=== PATIENT | female | born 1990 | race Caucasian/White ===

== ENCOUNTER 2018-04-24 16:44 | Emergency (ER) | payer OTHER ==
[~2018-04-24] VITALS: Ht 167.6 cm; Wt 81.6 kg
== END 2018-04-24 17:25 | disposition home or self-care (01) ==
LOC: ED 16:44
DX: F32.9 Major depressive disorder, single episode, unspecified (principal); Z88.6 Allergy status to analgesic agent

== ENCOUNTER 2022-05-15 08:44 | Emergency (ER) | payer OTHER ==
[~2022-05-15 08:44] MED LIST: REGLAN10 M1 PO
[2022-05-15] MEDS ORDERED: GLIPIZIDE10 M1 PO (09:10)
[2022-05-15] MEDS ORDERED: ZIPRASIDONE HCL20 M1 PO (09:10)
[2022-05-15] MEDS ORDERED: ATORVASTATIN CA40 M1 PO (09:10)
[2022-05-15] MEDS ORDERED: RYBELSUS7 MG PO (09:10)
[2022-05-15] MEDS ORDERED: LAMOTRIGINE25 M1 PO (09:11)
[2022-05-15] MEDS ORDERED: PREGABALIN200 MG PO (09:11)
[2022-05-15] MEDS ORDERED: JANUVIA100 MG PO (09:11)
[2022-05-15] MEDS ORDERED: QUETIAPINE FUM300 M1 PO (09:12)
[2022-05-15] MEDS ORDERED: TYLENOL325 M1 PO (09:35)
[2022-05-15] MEDS ORDERED: NAPROXEN250 MG PO (09:35)
== END 2022-05-15 09:46 | disposition home or self-care (01) ==
LOC: ED 08:44
DX: S93.401A Sprain of unspecified ligament of right ankle, initial encounter (principal); Z88.8 Allergy status to other drugs, medicaments and biological substances; Z79.899 Other long term (current) drug therapy; X50.1XXA Overexertion from prolonged static or awkward postures, initial encounter; Y93.89 Activity, other specified; Y92.89 Other specified places as the place of occurrence of the external cause; Y99.8 Other external cause status

== ENCOUNTER → 2023-11-23 | Outpatient (CLI) | payer BC ==
[~2023-11-23] MED LIST changes: +ATORVASTATIN CA40 M1 PO; +Carafate1 GM PO; +GLIPIZIDE10 M1 PO; +HUMALOG100 UNIT/1 SC; +JANUVIA100 MG PO; +LAMICTAL25 MG PO; +LAMOTRIGINE25 M1 PO; +LANTUS SOL100 UNIT/1 SC; +LYRICA200 M1 PO; +MOTRIN IB200 M1 PO; +NAPROXEN250 MG PO; +PREGABALIN200 MG PO; +PROTONIX40 MG PO; +QUETIAPINE FUM300 M1 PO; +RYBELSUS7 MG PO; +SEROQUEL200 MG PO; +TYLENOL325 M1 PO; +VITAMIN D350 MCG PO; +ZESTRIL10 MG PO; +ZIPRASIDONE HCL20 M1 PO
== END | disposition home or self-care (01) ==
LOC: RESCLI 13:00
PROVIDERS: ATTEND Internal Medicine
DX: E11.10 Type 2 diabetes mellitus with ketoacidosis without coma (principal); F32.9 Major depressive disorder, single episode, unspecified; E78.5 Hyperlipidemia, unspecified; E55.9 Vitamin D deficiency, unspecified; G62.9 Polyneuropathy, unspecified; K76.0 Fatty (change of) liver, not elsewhere classified; K21.9 Gastro-esophageal reflux disease without esophagitis; I10 Essential (primary) hypertension; D49.7 Neoplasm of unspecified behavior of endocrine glands and other parts of nervous system; Z98.890 Other specified postprocedural states; Z87.891 Personal history of nicotine dependence; Z79.84 Long term (current) use of oral hypoglycemic drugs; Z88.8 Allergy status to other drugs, medicaments and biological substances; Z79.899 Other long term (current) drug therapy

== ENCOUNTER → 2023-12-28 | Outpatient (CLI) | payer BC ==
[2023-12-28 12:40] LABS: BUN 10 mg/dl (9-23); CHLORIDE 105 mmol/L (98-107); POTASSIUM 4.2 mmol/L (3.4-5.1)
== END | disposition home or self-care (01) ==
LOC: RESCLI 01:18
PROVIDERS: Internal Medicine; ATTEND Student in an Organized Health Care Education/Training Program
DX: E11.42 Type 2 diabetes mellitus with diabetic polyneuropathy (principal); E55.9 Vitamin D deficiency, unspecified; K21.9 Gastro-esophageal reflux disease without esophagitis; E78.5 Hyperlipidemia, unspecified; F32.9 Major depressive disorder, single episode, unspecified; Z82.49 Family history of ischemic heart disease and other diseases of the circulatory system; Z98.890 Other specified postprocedural states; Z88.5 Allergy status to narcotic agent; Z88.8 Allergy status to other drugs, medicaments and biological substances; Z79.899 Other long term (current) drug therapy

== ENCOUNTER → 2024-03-21 | Outpatient (CLI) | payer BC ==
[2024-03-21 16:29] LABS: URINE CREATININE RANDOM 44.95 mg/dL
[2024-03-21 16:40] LABS: BUN 10 mg/dl (9-23); CHLORIDE 105 mmol/L (98-107); FREE T4 0.89 ng/dl (0.89-1.76); POTASSIUM 4.3 mmol/L (3.4-5.1)
== END | disposition home or self-care (01) ==
LOC: RESCLI 02:08
PROVIDERS: Internal Medicine; ATTEND Student in an Organized Health Care Education/Training Program
DX: E13.40 Other specified diabetes mellitus with diabetic neuropathy, unspecified (principal); E55.9 Vitamin D deficiency, unspecified; I10 Essential (primary) hypertension; E32.9 Disease of thymus, unspecified; K21.9 Gastro-esophageal reflux disease without esophagitis; Z12.4 Encounter for screening for malignant neoplasm of cervix; Z79.899 Other long term (current) drug therapy; Z98.890 Other specified postprocedural states; Z82.49 Family history of ischemic heart disease and other diseases of the circulatory system

== ENCOUNTER 2024-05-03 07:01 | Emergency (ER) | payer BC ==
[~2024-05-03] VITALS: Ht 165.1 cm; Wt 104.3 kg
[2024-05-03] MEDS ORDERED: Metoclopramide Hydrochloride 10 MG/2 ML AMP IV ONE (07:30)
[2024-05-03] MEDS ORDERED: SODIUM CHLORIDE 0.9% 1,000 ML IV ONE ×5 (07:30→12:45)
[2024-05-03 07:44] LABS: BASO # 0.1 10*3/uL (0.0-0.1); BASO % 0.6 % (0.0-1.0); EOS # 0.2 10*3/uL (0.0-0.4); EOS % 1.7 % (1.0-4.0); LYMPH # 1.4 10*3/uL (1.3-4.4); LYMPH % 11.2 % (27.0-41.0); MEAN CELL VOLUME 83.8 fl (81.0-99.0); MEAN CORPUSCULAR HGB 27.8 pg (27.0-31.0); MEAN CORPUSCULAR HGB CONC 33.2 g/dl (33.0-37.0); MEAN PLATELET VOLUME 12.4 fl (9.6-12.3); MONO # 0.3 10*3/uL (0.1-1.0); MONO % 2.6 % (3.0-9.0); NEUT # 10.6 10*3/uL (2.3-7.9); NEUT % 83.6 % (47.0-73.0); PLATELET COUNT AUTOMATED 277 10*3/uL (130-400); RED BLOOD COUNT 4.89 10*6/uL (4.10-5.10); RED CELL DISTRI WIDTH 13.3 % (0-14.5); WHITE BLOOD COUNT 12.7 10*3/uL (4.8-10.8)
[2024-05-03 08:05] LABS: ALKALINE PHOSPHATASE 60 U/L (46-116); BUN 13 mg/dl (9-23); CHLORIDE 103 mmol/L (98-107); LIPASE 29 U/L (12-53); POTASSIUM 4.4 mmol/L (3.4-5.1); SGPT/ALT 22 U/L (5-49); TOTAL PROTEIN 7.5 gm/dL (6.0-8.0)
[2024-05-03 08:09] LABS: B-hCG (QUALITATIVE) NEGATIVE (NEGATIVE)
[2024-05-03 08:14] LABS: BILIRUBIN Negative (Negative); BLOOD 2+ (Negative); CLARITY Clear (Clear); COLOR Yellow (Yellow); GLUCOSE 3+ (Negative); KETONE 3+ (Negative); LEUKO ESTERASE Negative (Negative); NITRITE Negative (Negative); PH 7.5 (4.5-8.0); SPECIFIC GRAVITY >= 1.030 (1.001-1.030)
[2024-05-03] MEDS ORDERED: INSULIN REGULAR, HUMAN 1 UNIT/0.01 ML SC ONE ×2 (08:15→12:10)
[2024-05-03] MEDS ORDERED: Ondansetron Hydrochloride 4 MG/2 ML VIAL IV ONE ×2 (08:35→11:15)
[2024-05-03] MEDS ORDERED: Haloperidol Lactate 5 MG/ML AMP IV ONE (09:40)
[2024-05-03] MEDS ORDERED: Prochlorperazine Edisylate 10 MG/2 ML VIAL IV ONE (12:45)
[2024-05-03] MEDS ORDERED: Ondansetron4 MG PO (14:59)
[2024-05-03] MEDS ORDERED: COMPAZINE R (14:59)
== END 2024-05-03 15:20 | disposition home or self-care (01) ==
LOC: ED 07:01
PROVIDERS: Emergency Medicine
DX: K29.00 Acute gastritis without bleeding (principal); R11.2 Nausea with vomiting, unspecified; F31.9 Bipolar disorder, unspecified; Z88.8 Allergy status to other drugs, medicaments and biological substances; Z98.51 Tubal ligation status

== ENCOUNTER 2024-05-04 19:41 | Inpatient (IN) | payer BC ==
[~2024-05-04] VITALS: Ht 165.1 cm; Wt 98.0 kg
[~2024-05-04 19:41] MED LIST changes: +COMPAZINE R; +Ondansetron4 MG PO
[2024-05-04 19:48] VITALS: BP 154/100
[2024-05-04] MEDS ORDERED: SODIUM CHLORIDE 0.9% 1,000 ML IV ONE ×3 (20:05→22:40)
[2024-05-04] MEDS ORDERED: Prochlorperazine Edisylate 10 MG/2 ML VIAL IV ONE (20:05)
[2024-05-04] MEDS ORDERED: IOHEXOL 300 MG/ML 100 ML VIAL IV ONE (20:05)
[2024-05-04 20:12] VITALS: BP 134/84
[2024-05-04 20:21] LABS: BASO % 0.2 % (0.0-1.0); HEMATOCRIT 39.5 % (37.0-47.0); LYMPH # 2.2 10*3/uL (1.3-4.4); LYMPH % 11.1 % (27.0-41.0); MEAN CELL VOLUME 83.3 fl (81.0-99.0); MEAN CORPUSCULAR HGB 27.8 pg (27.0-31.0); MEAN CORPUSCULAR HGB CONC 33.4 g/dl (33.0-37.0); MEAN PLATELET VOLUME 12.3 fl (9.6-12.3); MONO # 1.1 10*3/uL (0.1-1.0); MONO % 5.6 % (3.0-9.0); NEUT # 16.1 10*3/uL (2.3-7.9); NEUT % 82.7 % (47.0-73.0); PLATELET COUNT AUTOMATED 349 10*3/uL (130-400); RED BLOOD COUNT 4.74 10*6/uL (4.10-5.10); RED CELL DISTRI WIDTH 13.4 % (0-14.5); WHITE BLOOD COUNT 19.5 10*3/uL (4.8-10.8)
[2024-05-04 20:21] LABS: BILIRUBIN Negative (Negative); BLOOD 1+ (Negative); CLARITY Cloudy (Clear); COLOR Yellow (Yellow); GLUCOSE 2+ (Negative); KETONE 4+ (Negative); LEUKO ESTERASE 1+ (Negative); NITRITE Negative (Negative); SPECIFIC GRAVITY >= 1.030 (1.001-1.030)
[2024-05-04] MEDS ORDERED: IOHEXOL 300 MG/ML 100 ML VIAL ONE (20:23)
[2024-05-04 20:31] LABS: EPITHELIAL CELLS 16-20; MUCOUS 2+; RBC 0-2 rbc/hpf (0-2)
[2024-05-04 20:41] LABS: ALKALINE PHOSPHATASE 61 U/L (46-116); BUN 16 mg/dl (9-23); CHLORIDE 105 mmol/L (98-107); LIPASE 26 U/L (12-53); SGPT/ALT 21 U/L (5-49); TOTAL PROTEIN 7.9 gm/dL (6.0-8.0)
[2024-05-04 20:48] LABS: POTASSIUM 3.2 mmol/L (3.4-5.1)
[2024-05-04] MEDS ORDERED: POTASSIUM CHLORIDE IN WATER 100 ML IV ONE (21:15)
[2024-05-04] MEDS ORDERED: INSULIN REGULAR, HUMAN 1 UNIT/0.01 ML IV ONE (21:30)
[2024-05-04] MEDS ORDERED: ACETAMINOPHEN 650 MG SUPP R PRN (22:05)
[2024-05-04] MEDS ORDERED: BISACODYL 10 MG SUPP R PRN (22:05)
[2024-05-04] MEDS ORDERED: ACETAMINOPHEN 325 MG TAB PO PRN (22:05)
[2024-05-04] MEDS ORDERED: Ondansetron Hydrochloride 4 MG/2 ML VIAL IV PRN (22:05)
[2024-05-04 22:24] VITALS: BP 138/76
[2024-05-04] MEDS ORDERED: POTASSIUM CHLORIDE 20 MEQ TAB PO PRN (22:35)
[2024-05-04] MEDS ORDERED: POTASSIUM CHLORIDE 20 MEQ/100 ML BAG IV PRN (22:35)
[2024-05-04] MEDS ORDERED: INSULIN REGULAR IN 0.9 % NACL 100 ML IV SCH (22:35)
[2024-05-04] MEDS ORDERED: SODIUM CHLORIDE 0.45% 1,000 ML IV ONE (22:45)
[2024-05-04 23:00] VITALS: BP 145/66
[2024-05-04 23:21] LABS: BUN 17 mg/dl (9-23); CHLORIDE 107 mmol/L (98-107); POTASSIUM 3.1 mmol/L (3.4-5.1)
[2024-05-05 01:23] LABS: BUN 16 mg/dl (9-23); CHLORIDE 110 mmol/L (98-107)
[2024-05-05] MEDS ORDERED: SODIUM CHLORIDE 0.45% 1,000 ML IV ONE (01:55)
[2024-05-05 03:25] LABS: BUN 16 mg/dl (9-23); CHLORIDE 111 mmol/L (98-107); POTASSIUM 2.9 mmol/L (3.4-5.1)
[2024-05-05 04:00] VITALS: BP 156/89
[2024-05-05] MEDS ORDERED: Prochlorperazine Maleate 5 MG TAB PO PRN ×2 (04:25→10:40)
[2024-05-05] MEDS ORDERED: DEXTROSE 5% SALINE 0.45% 1,000 ML IV ONE (04:30)
[2024-05-05] MEDS ORDERED: PREGABALIN 50 MG CAP PO SCH (06:00)
[2024-05-05] MEDS ORDERED: Pantoprazole Sodium 40 MG TAB PO SCH (06:00)
[2024-05-05 06:44] LABS: BASO % 0.1 % (0.0-1.0); HEMATOCRIT 36.4 % (37.0-47.0); LYMPH # 1.8 10*3/uL (1.3-4.4); LYMPH % 11.6 % (27.0-41.0); MEAN CELL VOLUME 84.5 fl (81.0-99.0); MEAN CORPUSCULAR HGB 27.6 pg (27.0-31.0); MEAN CORPUSCULAR HGB CONC 32.7 g/dl (33.0-37.0); MEAN PLATELET VOLUME 12.4 fl (9.6-12.3); MONO # 1.4 10*3/uL (0.1-1.0); MONO % 9.1 % (3.0-9.0); NEUT # 12.5 10*3/uL (2.3-7.9); NEUT % 78.8 % (47.0-73.0); PLATELET COUNT AUTOMATED 278 10*3/uL (130-400); RED BLOOD COUNT 4.31 10*6/uL (4.10-5.10); RED CELL DISTRI WIDTH 13.6 % (0-14.5); WHITE BLOOD COUNT 15.9 10*3/uL (4.8-10.8)
[2024-05-05 07:14] LABS: ALKALINE PHOSPHATASE 50 U/L (46-116); BUN 14 mg/dl (9-23); CHLORIDE 112 mmol/L (98-107); CHOLESTEROL 173 mg/dL (<200); LDL CHOLESTEROL 114 mg/dL (9-159); POTASSIUM 3.2 mmol/L (3.4-5.1); SGPT/ALT 15 U/L (5-49); TOTAL PROTEIN 6.7 gm/dL (6.0-8.0); TRIGLYCERIDES 100 mg/dl (<150)
[2024-05-05 08:00] VITALS: BP 103/50
[2024-05-05] MEDS ORDERED: Ondansetron Hydrochloride 4 MG/2 ML VIAL IV PRN (08:42)
[2024-05-05] MEDS ORDERED: Ondansetron Hydrochloride 4 MG/2 ML VIAL IV ONE (08:45)
[2024-05-05] MEDS ORDERED: DEXTROSE 5% SALINE 0.45% 1,000 ML IV SCH (09:45)
[2024-05-05] MEDS ORDERED: Enoxaparin Sodium 40 MG/0.4 ML SYR SC SCH (10:00)
[2024-05-05] MEDS ORDERED: Cholecalciferol 2,000 UNIT TABLET (50 MCG) PO SCH (10:00)
[2024-05-05] MEDS ORDERED: LISINOPRIL 10 MG TAB PO SCH (10:00)
[2024-05-05] MEDS ORDERED: LAMOTRIGINE 25 MG TAB PO SCH (10:00)
[2024-05-05 10:32] LABS: BUN 13 mg/dl (9-23); CHLORIDE 110 mmol/L (98-107)
[2024-05-05 11:37] VITALS: BP 154/80
[2024-05-05] MEDS ORDERED: Metoclopramide Hydrochloride 10 MG/2 ML AMP IV ONE (11:45)
[2024-05-05] MEDS ORDERED: Promethazine Hydrochloride 25 MG/ML VIAL IV PRN (11:45)
[2024-05-05 14:39] LABS: BUN 10 mg/dl (9-23); CHLORIDE 111 mmol/L (98-107); POTASSIUM 3.4 mmol/L (3.4-5.1)
[2024-05-05 15:54] VITALS: BP 150/58
[2024-05-05 18:27] LABS: BUN 8 mg/dl (9-23); CHLORIDE 112 mmol/L (98-107); POTASSIUM 3.4 mmol/L (3.4-5.1)
[2024-05-05 20:00] VITALS: BP 146/62
[2024-05-05] MEDS ORDERED: QUETIAPINE FUMARATE 100 MG TAB PO SCH (22:00)
[2024-05-05] MEDS ORDERED: ATORVASTATIN CALCIUM 40 MG TABLET PO SCH (22:00)
[2024-05-05 22:20] LABS: BUN 8 mg/dl (9-23); CHLORIDE 110 mmol/L (98-107); POTASSIUM 3.4 mmol/L (3.4-5.1)
[2024-05-06] VITALS: BP 140/64
[2024-05-06 02:26] LABS: BUN 7 mg/dl (9-23); CHLORIDE 110 mmol/L (98-107); POTASSIUM 3.4 mmol/L (3.4-5.1)
[2024-05-06 04:00] VITALS: BP 143/69
[2024-05-06 06:37] LABS: BUN 6 mg/dl (9-23); CHLORIDE 110 mmol/L (98-107); POTASSIUM 3.3 mmol/L (3.4-5.1)
[2024-05-06] MEDS ORDERED: POTASSIUM CHLORIDE IN WATER 100 ML IV ONE (07:40)
[2024-05-06 08:00] VITALS: BP 139/74
[2024-05-06 10:28] LABS: BUN 6 mg/dl (9-23); CHLORIDE 107 mmol/L (98-107); POTASSIUM 3.3 mmol/L (3.4-5.1)
[2024-05-06 12:00] VITALS: BP 153/69
[2024-05-06 14:15] LABS: CHLORIDE 106 mmol/L (98-107); POTASSIUM 3.4 mmol/L (3.4-5.1)
[2024-05-06 14:16] LABS: BUN < 5 mg/dl (9-23)
[2024-05-06 16:00] VITALS: BP 127/90
[2024-05-06 18:15] LABS: BUN 6 mg/dl (9-23); CHLORIDE 105 mmol/L (98-107); POTASSIUM 3.5 mmol/L (3.4-5.1)
[2024-05-06 20:00] VITALS: BP 149/75
[2024-05-06 22:14] LABS: CHLORIDE 105 mmol/L (98-107); POTASSIUM 3.1 mmol/L (3.4-5.1)
[2024-05-06 22:16] LABS: BUN < 5 mg/dl (9-23)
[2024-05-07] VITALS: BP 144/70
[2024-05-07 02:29] LABS: CHLORIDE 109 mmol/L (98-107); POTASSIUM 3.4 mmol/L (3.4-5.1)
[2024-05-07 02:31] LABS: BUN < 5 mg/dl (9-23)
[2024-05-07 04:00] VITALS: BP 132/85
[2024-05-07 07:22] LABS: CHLORIDE 108 mmol/L (98-107)
[2024-05-07 07:25] LABS: BUN < 5 mg/dl (9-23)
[2024-05-07 08:00] VITALS: BP 154/88
[2024-05-07] MEDS ORDERED: DEXTROSE 10 % IN WATER 250 ML IV PRN (08:35)
[2024-05-07] MEDS ORDERED: BISACODYL 5 MG TAB PO PRN (08:40)
[2024-05-07] MEDS ORDERED: INSULIN LISPRO 1 UNIT/0.01 ML SQ SCH ×2 (10:00→11:30)
[2024-05-07 11:03] LABS: BUN 5 mg/dl (9-23); CHLORIDE 105 mmol/L (98-107); POTASSIUM 3.7 mmol/L (3.4-5.1)
[2024-05-07 12:00] VITALS: BP 138/91
[2024-05-07] MEDS ORDERED: diphenhydrAMINE hydrochloride 50 MG/ML VIAL IV ONE (12:30)
[2024-05-07 14:28] LABS: BUN 6 mg/dl (9-23); CHLORIDE 102 mmol/L (98-107); POTASSIUM 3.9 mmol/L (3.4-5.1)
[2024-05-07 16:00] VITALS: BP 130/90
[2024-05-07] MEDS ORDERED: Metoclopramide Hydrochloride 10 MG/2 ML AMP IV SCH (16:00)
[2024-05-07 20:00] VITALS: BP 123/69
[2024-05-08] VITALS: BP 124/69
[2024-05-08 00:36] LABS: BUN 7 mg/dl (9-23); CHLORIDE 105 mmol/L (98-107); POTASSIUM 3.6 mmol/L (3.4-5.1)
[2024-05-08 04:00] VITALS: BP 103/76
[2024-05-08 07:04] LABS: BUN 6 mg/dl (9-23); CHLORIDE 109 mmol/L (98-107)
[2024-05-08 07:57] VITALS: BP 104/62
[2024-05-08] MEDS ORDERED: POTASSIUM CHLORIDE IN WATER 100 ML IV SCH (08:00)
[2024-05-08] MEDS ORDERED: DEXTROSE 10 % IN WATER 250 ML IV PRN (08:05)
[2024-05-08] MEDS ORDERED: POTASSIUM CHLORIDE 20 MEQ TAB PO ONE (08:05)
[2024-05-08] MEDS ORDERED: Insulin Glargine, Recombinan 1 UNIT/0.01 ML SC ONE (09:45)
[2024-05-08] MEDS ORDERED: INSULIN LISPRO 1 UNIT/0.01 ML SQ SCH (11:30)
[2024-05-08 12:00] VITALS: BP 110/71
[2024-05-08] MEDS ORDERED: Insulin Glargine, Recombinan 1 UNIT/0.01 ML SC SCH (22:00)
== END 2024-05-08 14:11 | disposition home or self-care (01) | DRG 638 ==
LOC: ED 19:41 → ICCU 22:24 → EDHOLD 22:24 → ICCU 22:34
PROVIDERS: Internal Medicine; Nurse Practitioner Family; Student in an Organized Health Care Education/Training Program; ADMIT Internal Medicine; ATTEND Internal Medicine
DX: E10.10 Type 1 diabetes mellitus with ketoacidosis without coma (principal); R65.10 Systemic inflammatory response syndrome (SIRS) of non-infectious origin without acute organ dysfunction; K52.9 Noninfective gastroenteritis and colitis, unspecified; R31.9 Hematuria, unspecified; E87.6 Hypokalemia; F32.89 Other specified depressive episodes; E78.2 Mixed hyperlipidemia; E55.9 Vitamin D deficiency, unspecified; Z68.36 Body mass index [BMI] 36.0-36.9, adult; Z83.3 Family history of diabetes mellitus; Z82.49 Family history of ischemic heart disease and other diseases of the circulatory system; Z79.4 Long term (current) use of insulin; Z79.899 Other long term (current) drug therapy; Z88.8 Allergy status to other drugs, medicaments and biological substances; Z98.51 Tubal ligation status

== ENCOUNTER → 2024-05-23 | Outpatient (CLI) | payer BC | END | disposition home or self-care (01) | LOC: RAD 14:04 | PROVIDERS: ATTEND Family Medicine | DX: R05.9 Cough, unspecified (principal) ==

== ENCOUNTER → 2024-10-13 | Outpatient (CLI) | payer BC ==
[2024-10-13 08:44] LABS: BASO # 0.1 10*3/uL (0.0-0.1); BASO % 0.9 % (0.0-1.0); EOS # 0.7 10*3/uL (0.0-0.4); EOS % 8.3 % (1.0-4.0); HEMATOCRIT 42.3 % (37.0-47.0); MEAN CELL VOLUME 84.8 fl (81.0-99.0); MEAN CORPUSCULAR HGB 27.7 pg (27.0-31.0); MEAN CORPUSCULAR HGB CONC 32.6 g/dl (33.0-37.0); MEAN PLATELET VOLUME 11.7 fl (9.6-12.3); MONO # 0.5 10*3/uL (0.1-1.0); MONO % 5.8 % (3.0-9.0); NEUT % 55.3 % (47.0-73.0); PLATELET COUNT AUTOMATED 265 10*3/uL (130-400); RED BLOOD COUNT 4.99 10*6/uL (4.10-5.10); RED CELL DISTRI WIDTH 13.5 % (0-14.5)
[2024-10-13 09:32] LABS: ALKALINE PHOSPHATASE 67 U/L (46-116); BUN 12 mg/dl (9-23); CHLORIDE 104 mmol/L (98-107); CHOLESTEROL 206 mg/dL (<200); LDL CHOLESTEROL 136 mg/dL (9-159); POTASSIUM 4.7 mmol/L (3.4-5.1); SGPT/ALT 16 U/L (5-49); TOTAL PROTEIN 7.6 gm/dL (6.0-8.0); TRIGLYCERIDES 112 mg/dl (<150)
[2024-10-15 11:04] LABS: ANTI-DSDNA ANTIBODIES 1 IU/mL (0-9); ANTI-RNP ANTIBODIES 0.2 AI (0.0-0.9); ANTICHROMATIN ANTIBODIES <0.2 AI (0.0-0.9); ANTISCLERODERMA-70 AB <0.2 AI (0.0-0.9); SJOGREN ANTI-SS-A <0.2 AI (0.0-0.9); SJOREN AB, ANTI-SS-B <0.2 AI (0.0-0.9)
== END | disposition home or self-care (01) ==
LOC: LAB 08:28
PROVIDERS: ATTEND Internal Medicine
DX: E11.9 Type 2 diabetes mellitus without complications (principal); E55.9 Vitamin D deficiency, unspecified; M25.50 Pain in unspecified joint

== ENCOUNTER → 2024-10-25 | Outpatient (CLI) | payer BC | END | disposition home or self-care (01) | LOC: RAD 14:07 | PROVIDERS: ATTEND Family Medicine | DX: J40 Bronchitis, not specified as acute or chronic (principal) ==